=== PATIENT | female | born 1965 | race Hispanic/Latino ===

== ENCOUNTER 2018-09-09 01:42 | Emergency (ER) | payer BC, OTHER ==
[2018-09-09] MEDS ORDERED: ORPHENADRINE CITRATE 30 MG/ML ML ONE (03:06)
[2018-09-09] MEDS ORDERED: KETOROLAC TROMETHAMINE 60 MG/2 ML VIAL ONE (03:07)
== END 2018-09-09 03:30 | disposition home or self-care (01) ==
LOC: EDH 01:42
DX: S20.212A Contusion of left front wall of thorax, initial encounter (principal); S60.222A Contusion of left hand, initial encounter; I10 Essential (primary) hypertension; E78.5 Hyperlipidemia, unspecified; Z72.0 Tobacco use; W01.0XXA Fall on same level from slipping, tripping and stumbling without subsequent striking against object, initial encounter; Y93.89 Activity, other specified; Y92.89 Other specified places as the place of occurrence of the external cause; Y99.8 Other external cause status
CPT/HCPCS: 71101; 96372 ×2; 99284; J1885; J2360

== ENCOUNTER 2019-10-07 18:14 | Emergency (ER) | payer BC ==
[2019-10-07] MEDS ORDERED: KETOROLAC TROMETHAMINE 60 MG/2 ML VIAL ONE (19:25)
== END 2019-10-07 20:00 | disposition home or self-care (01) ==
LOC: EDH 18:14
DX: M79.671 Pain in right foot (principal); M79.89 Other specified soft tissue disorders; I10 Essential (primary) hypertension; E78.5 Hyperlipidemia, unspecified; Z72.0 Tobacco use
CPT/HCPCS: 73630; 96372; 99284; J1885

== ENCOUNTER 2023-09-21 23:38 | Emergency (ER) | payer BC ==
[~2023-09-21] VITALS: Ht 170.2 cm; Wt 105.7 kg
[2023-09-22 00:11] LABS: SARS-CoV-2, RNA, NAAT NEGATIVE SARS CoV-2 (NEGATIVE)
[2023-09-22 00:12] LABS: RAPID GROUP A STREP positive (NEGATIVE)
[2023-09-22 00:16] LABS: INFLUENZA TYPE A Negative For Type A (NEGATIVE); INFLUENZA TYPE B Negative For Type B (NEGATIVE)
[2023-09-22 00:27] VITALS: PULSE 73; RESP 18
[2023-09-22] MEDS ORDERED: PENI500T2 PO (00:30)
[2023-09-22] MEDS ORDERED: 0.9%NACL 1000ML 1,000 ML IV ONE (00:30)
[2023-09-22] MEDS ORDERED: ALBUHFA IH (00:30)
[2023-09-22] MEDS ORDERED: FAMOTIDINE 20MG VIAL IV ONE (00:30)
[2023-09-22] MEDS ORDERED: METOCLOPRAMIDE 10 MG/2 ML VIAL IVP ONE (00:30)
[2023-09-22] MEDS ORDERED: CETI10CA5 PO (00:30)
[2023-09-22] MEDS ORDERED: KETOROLAC 30MG VIAL (30MG/ML) IVP ONE (00:30)
[2023-09-22] MEDS ORDERED: BENZ-39 PO (00:30)
[2023-09-22] MEDS ORDERED: CEFTRIAXONE 2GM VIAL IVPB ONE (00:30)
[2023-09-22] MEDS ORDERED: FLUT16H NASAL (00:30)
[2023-09-22] MEDS ORDERED: ALBUTEROL 0.083% 2.5 MG/3 ML INH IH ONE (00:30)
[2023-09-22 01:50] VITALS: BP 137/78; PULSE 76; RESP 18; O2SAT 98
== END 2023-09-22 01:51 | disposition home or self-care (01) ==
LOC: EDH 23:38
DX: J02.0 Streptococcal pharyngitis (principal); J20.8 Acute bronchitis due to other specified organisms; Z20.822 Contact with and (suspected) exposure to COVID-19
CPT/HCPCS: 99284; 87635; 87880; 87804 ×2; 96365; 96375; 94640; J3490; J7030; J0696; J1885; J2765

== ENCOUNTER 2024-07-13 05:44 | Emergency (ER) | payer BC ==
[~2024-07-13] VITALS: Ht 170.2 cm; Wt 90.7 kg
[~2024-07-13 05:44] MED LIST: ALBUHFA IH; BENZ-39 PO; CETI10CA5 PO; FLUT16H NASAL; PENI500T2 PO
[2024-07-13] MEDS ORDERED: AMOX1TAB16 PO (05:50)
[2024-07-13 06:02] VITALS: BP 150/81; PULSE 88; RESP 18; TEMP 96.9; O2SAT 99
== END 2024-07-13 06:03 | disposition home or self-care (01) ==
LOC: EDH 05:44
DX: J32.9 Chronic sinusitis, unspecified (principal); Z79.899 Other long term (current) drug therapy